=== PATIENT | female | born 1985 | race Caucasian/White ===

== ENCOUNTER 2021-10-20 03:46 | Emergency (ER) | payer SELFPAY ==
[~2021-10-20] VITALS: Ht 170.2 cm; Wt 95.5 kg
--- NOTE | 2021-10-20 03:54 | PHYS DOC ---
General Adult EDM: Chief Complaint: SHOULDER INJURY HPI: HPI: Patient is a 35-year-old female presenting for shoulder pain. Reports onset was approximately 6 hours prior to arrival, was actively lifting a couch to throw into a dumpster when she heard a pop in her right shoulder. Pain is focal and nonradiating, states abduction causes most pain. Timing of symptoms has been intermittent since onset but worsened with no obvious range of motion and pressure when sleeping. Patient took ibuprofen with mild relief in his symptoms but ongoing pain and inability to sleep prompted her to come in for evaluation. Besides pain with range of motion, no reported motor or sensory or neuro de ficits reported Review of Systems: Review of Systems: Fourteen body systems of review of systems have been reviewed. See HPI for pertinent positives and negative responses, other cho all other systems are negative, non-pertinent or non-contributory Heart Score: C/O Chest Pain: No Risk Factors: Risk Factors: DM, Current or recent (<one month) smoker, HTN, HLP, family history of CAD, obesity. Risk Scores: Score 0 - 3: 2.5% MACE over next 6 weeks - Discharge Home Score 4 - 6: 20.3% MACE over next 6 weeks - Admit for Clinical Observation Score 7 - 10: 72.7% MACE over next 6 weeks - Early Invasive Strategies Physical Exam: PE: Constitutional: Well developed, well nourished, no acute distress, non-toxic appearance. HENT: Normocephalic, atraumatic, bilateral external ears normal, oropharynx moist, no oral exudates, nose normal. Eyes: PERRLA, EOMI, conjunctiva normal, no discharge. Neck: Normal range of motion, no tenderness, supple, no stridor. Cardiovascular: Heart rate regular, sinus rhythm, no murmurs rubs or gallops Lungs & Thorax: Bilateral breath sounds clear to auscultation Abdomen: Bowel sounds normal, soft, no tenderness, no masses, no pulsatile masses. Nonsurgical abdomen, no peritoneal signs Skin: Warm, dry, no erythema, no rash. Back: No tenderness, no CVA tenderness. Extremities: Focal tenderness to palpation over right anterior glenohumeral head without any visual and/or obvious palpable abnormalities, no cyanosis, no clubbing, ROM intact, no edema. 2+ radial pulses to bilateral upper extremities palpable Neurologic: Alert and oriented X 3, medial radial and ulnar nerves of bilateral upper extremities intact, normal motor & sensory function, no focal deficits noted. Psychologic: Anxious affect and mood Current Patient Data: Vital Signs: Vital Signs Date Time Temp Pulse Resp B/P (MAP) Pulse Ox O2 Delivery O2 Flow Rate FiO2 10/20/21 03:48 97.9 103 18 208/111 (143) 96 Room Air 97.9 Vital Signs Date Time Temp Pulse Resp B/P (MAP) Pulse Ox O2 Delivery O2 Flow Rate FiO2 10/20/21 04:45 98 Room Air 10/20/21 03:48 97.9 103 18 208/111 (143) 97.9 EKG: EKG: [] Radiology/Procedures: Radiology/Procedures: EXAM: RIGHT SHOULDER 2 VIEWS. HISTORY: Pain after injury. COMPARISON: None. FINDINGS: No fractures are identified. Glenohumeral joint spaces and alignment are maintained. There is moderate lateral acromial downsloping. Joint spaces are preserved. IMPRESSION: 1. Lateral acromial downsloping. Correlate for impingement. Electronically signed by: Herminio Grossman MD (10/20/2021 5:47 AM) [id number] Course & Med Decision Making: Course & Med Decision Making ABCs unremarkable HPI physical exam and comprehensive ER work-up concerning for elevated blood pressure without diagnosis of hypertension in an otherwise asymptomatic individual in addition to right shoulder impingement Symptoms improved with provided ER intervention. Supportive care practices, exercises and close PCP follow-up for likely need for further outpatient work-up and intervention such as physical therapy as indicated advised Strict return precautions discussed at length with good understanding patient, all questions and concerns addressed prior to ER departure Kelly Disclaimer: Kelly Disclaimer: This electronic medical record was generated, in whole or in part, using a voice recognition dictation system. Departure Departure Impression: Primary Impression: Impingement syndrome of right shoulder Additional Impression: Elevated blood pressure reading Disposition: HOME / SELF CARE / HOMELESS Condition: STABLE Patient Instructions: Shoulder Exercises, Generic, SportsMed Additional Instructions: It is likely that you have experienced a impingement/sprain/strain to an associated ligament/tendon within the right shoulder joint that is causing you pain. The best treatment for this injury is continued range of motion to prevent a frozen joint. A Rest, Ice, Compression, Elevation (RICE) strategy may also be helpful in the acute phase. Utilize Tylenol and/or ibuprofen as needed in addition to prescribed pain medication for severe pain purposes only. Please follow up with your primary doctor. Please return to the ED if new or worrisome symptoms arise. Scripts Tramadol Hcl (TRAMADOL HCL) 50 Mg Tablet 50 MG PO Q4HRS PRN for PAIN, #14 TAB Prov: JONATHAN TOWNSEND DO 10/20/21 JONATHAN TOWNSEND DO Oct 20, 2021 03:54
[2021-10-20] MEDS ORDERED: HYDROcodone/APAP 7.5/325MG 1 TAB TABLET PO ONE (04:45)
[2021-10-20 05:23] VITALS: BP 158/59
--- NOTE | 2021-10-20 05:50 | RAD ---
EXAM: RIGHT SHOULDER 2 VIEWS. HISTORY: Pain after injury. COMPARISON: None. FINDINGS: No fractures are identified. Glenohumeral joint spaces and alignment are maintained. There is moderate lateral acromial downsloping. Joint spaces are preserved. IMPRESSION: 1. Lateral acromial downsloping. Correlate for impingement. Electronically signed by: Herminio Grossman MD (10/20/2021 5:47 AM) [id number]
[2021-10-20] MEDS ORDERED: TRAM50TA PO (05:57)
== END 2021-10-20 06:05 | disposition home or self-care (01) ==
LOC: ER 03:46
DX: M75.41 Impingement syndrome of right shoulder (principal); R03.0 Elevated blood-pressure reading, without diagnosis of hypertension
CPT/HCPCS: 73030; 99283; A4565